=== PATIENT | male | born 1965 | race Caucasian/White ===

== ENCOUNTER 2018-12-09 18:02 | Observation (INO) | payer BC, MEDICAID ==
[2018-12-09] MEDS ORDERED: LORAZEPAM 2 MG/ML VIAL IV ONE (18:14)
[2018-12-09] MEDS ORDERED: ONDANSETRON HCL IV 4 MG/2 ML VIAL IVP ONE (18:14)
[2018-12-09] MEDS ORDERED: 0.9 % SODIUM CHLORIDE 1000ML 1,000 ML IV SCH (18:15)
--- NOTE | 2018-12-09 18:19 | Emergency Department Record ---
History of Present Illness - General Chief Complaint: Abdominal Pain Stated Complaint: SHAKES,ABDOMINAL PAIN,WITHDRAWALS Time Seen by Provider: 12/09/18 18:08 Source: Patient Mode of Arrival: Ambulatory Limitations: No limitations - History of Present Illness Initial Comments: 53 yo male presents to ED for evaluation or alcohol withdrawal symptoms, reports that he last drank approximately 24 hours ago. Patient reports that he has been drinking daily for several months, denies health problems other than pancreatitis and oral cancer that was removed through [facility] several months ago , now in remission. Patient denies HTN, denies DM. Patient complains of abdominal pain with nausea, denies vomiting or change in stools. MD Complaint: Abdominal pain Onset/Timin -: Days(s) Location: Diffuse Radiation: None Severity: Severe Severity scale (1-10): 10 Quality: Aching Consistency: Constant Improves With: Nothing Worsens With: Nothing Associated Symptoms: Denies other symptoms, Nausea - Related Data Home Medications Medication Instructions Recorded Confirmed Last Taken Amitriptyline HCl 50 mg PO DAILY 12/09/18 12/09/18 Unknown Omeprazole 40 mg PO DAILY 12/09/18 12/09/18 Unknown Allergies Allergy/AdvReac Type Severity Reaction Status Date / Time benzocaine AdvReac SKIN Verified 12/09/18 18:16 IRRITATION lidocaine AdvReac SKIN Verified 12/09/18 18:16 IRRITATION lidocaine HCl AdvReac SKIN Verified 12/09/18 18:16 [From Xylocaine] IRRITATION Travel Screening - Travel/Exposure Within Last 30 Days Have you traveled within the last 30 days?: No Review of Systems Constitutional: Denies: Chills, Fever, Malaise, Night sweats Eyes: Denies: Eye discharge, Eye pain ENT: Denies: Congestion, Ear pain, Epistaxis Respiratory: Denies: Cough, Dyspnea Cardiovascular: Denies: Chest pain, Dyspnea on exertion Endocrine: Denies: Fatigue, Heat or cold intolerance Gastrointestinal: Reports: Abdominal pain, Nausea. Denies: Vomiting Genitourinary: Denies: Incontinence, Retention Musculoskeletal: Denies: Arthralgia, Back pain, Gout, Joint swelling Skin: Denies: Bruising, Change in color Neurological: Reports: Tremors. Denies: Abnormal gait, Confusion, Headache Psychiatric: Denies: Anxiety Hematological/Lymphatic: Denies: Anemia, Blood Clots Past Medical History - SOCIAL HISTORY Smoking Status: Heavy tobacco smoker (>10/day) Alcohol Use Comment: no alcohol since 3-16 was heavy drinker before that - RESPIRATORY Hx Respiratory Disorders: No - CARDIOVASCULAR Hx Cardio Disorders: Yes Hx Cardiac Cath: Yes (2012) - NEURO Hx Neuro Disorders: No - GI Hx GI Disorders: Yes Hx Abdominal Pain: Yes Hx Reflux: Yes Hx Hepatitis/Jaundice: Yes (inpast) Hx Pancreatitis: Yes (chronic) Hx Wt Loss/Wt Gain: Yes (20 lbs) - Hx Genitourinary Disorders: No - ENDOCRINE Hx Endocrine Disorders: No - MUSCULOSKELETAL Hx Musculoskeletal Disorders: Yes Hx Back Injury: Yes (fx x's 2) - PSYCH Hx Psych Problems: No - HEMATOLOGY/ONCOLOGY Hx Hematology/Oncology Disorders: No Family Medical History Family Hx Comment (NOT TO BE USED IN PLACE OF ITEMS BELOW): adopted Physical Exam - General General Appearance: Alert, Oriented x3, Cooperative Limitations: No limitations - Head Head exam: Atraumatic, Normocephalic, Normal inspection Head exam detail: negative: Abrasion, Contusion, Gregory's sign, General tenderness, Hematoma, Laceration - Eye Eye exam: Normal appearance. negative: Conjunctival injection, Periorbital swelling, Periorbital tenderness, Scleral icterus - ENT Ear exam: negative: Auricular hematoma, Auricular trauma Nasal Exam: negative: Active bleeding, Discharge, Dried blood, Foreign body Mouth exam: negative: Drooling, Laceration, Muffled voice, Tongue elevation - Neck Neck exam: Normal inspection. negative: Meningismus, Tenderness - Respiratory Respiratory exam: Normal lung sounds bilaterally. negative: Respiratory distress, Rhonchi, Stridor, Wheezes - Cardiovascular Cardiovascular Exam: Regular rate, Normal rhythm, Normal heart sounds - GI/Abdominal GI/Abdominal exam: Soft. negative: Distended, Rebound, Rigid, Tenderness - Rectal Rectal exam: Deferred - exam: Deferred - Extremities Extremities exam: Normal inspection. negative: Pedal edema, Tenderness - Back Back exam: Denies: CVA tenderness (R), CVA tenderness (L) - Neurological Neurological exam: Alert, Normal gait, Oriented X3 - Psychiatric Psychiatric exam: Normal affect, Normal mood - Skin Skin exam: Normal color. negative: Abrasion Type of lesion: negative: abrasion Course Vital Signs 12/09/18 18:09 Temperature 97.8 F Pulse Rate 65 Respiratory 18 Rate Blood Pressure 174/103 Pulse Ox 97 - Reevaluation(s) Reevaluation #1: 12/09/18 18:55 Laboratory studies were reviewed and are grossly unremarkable for an acute process except for the following: AG 17 Lipase 74 Alk phos 196 ALT 45 Patient was updated on all results, will admit for alcohol withdrawal pathway at this time. Reevaluation #2: 12/09/18 19:02 Case was discussed with Leigh Calixto NP, will accept admission at this time, Medical Decision Making - Lab Data Result diagrams: 12/09/18 18:20 12/09/18 18:20 Disposition Disposition: Admit Clinical Impression: Alcohol withdrawal Qualifiers: Complication of substance-induced condition: uncomplicated Qualified Code(s): F10.230 - Alcohol dependence with withdrawal, uncomplicated Disposition: Still a Patient at [facility] Decision to Admit: Admit from ER Decision to Admit Date: 12/09/18 Decision to Admit Time: 19:03 Condition: (2) Stable Forms: Patient Portal Access Time of Disposition: 19:03 Quality - Quality Measures Quality Measures: N/A - Blood Pressure Screening Does Patient Have Any of the Following: No Blood Pressure Classification: Hypertensive Reading Systolic Measurement: 174 Diastolic Measurement: 103 Screening for High Blood Pressure: < First Hypertensive BP, F/U Documented > [ G8950] First Hypertensive Follow-up Interventions: Referral to alternative/primary care provider.
[2018-12-09 18:34] LABS: HEMATOCRIT 45.8 % (42.0-52.0); HEMOGLOBIN 16.1 gm/dl (14.0-18.0); MEAN CELL VOLUME 88.9 fl (81-97); MEAN CORPUSCULAR HEMOGLOBIN 31.3 pg (27-33); MEAN CORPUSCULAR HGB CONC 35.2 g/dl (32-36); MEAN PLATELET VOLUME 9.6 fl (7.4-10.4); PLATELET COUNT 261 K/uL (130-400); RED BLOOD COUNT 5.15 M/uL (4.40-5.70); RED CELL DISTRIBUTION WIDTH 14.5 % (11.5-14.5); WHITE BLOOD COUNT W/O DIFF 11.7 K/uL (4.2-12.2)
[2018-12-09 18:44] LABS: PLATELET ESTIMATE NORMAL (NORMAL)
[2018-12-09 18:45] LABS: BLOOD UREA NITROGEN 13 mg/dL (6-20); CREATININE 0.7 mg/dL (0.7-1.2); EST GLOMERULAR FILTRATION RATE > 60 mL/min
[2018-12-09 18:46] LABS: TOTAL PROTEIN 7.3 g/dL (6.6-8.7)
[2018-12-09 18:47] LABS: PROTHROMBIN TIME (PATIENT) 10.2 SECONDS (9.5-12.1)
[2018-12-09 18:48] LABS: GLUCOSE,RANDOM 112 mg/dL (74-109)
[2018-12-09 18:50] LABS: ALT/SGPT 45 U/L (<41)
[2018-12-09 18:51] LABS: ALB/GLOB RATIO 1.4 (1.1-1.8); ALBUMIN 4.3 g/dL (4.0-5.0); ALKALINE PHOSPHATASE 196 U/L (40-129); AST/SGOT 33 U/L (10.0-50.0)
[2018-12-09] MEDS ORDERED: KETOROLAC 30 MG/ML VIAL IVP ONE (19:03)
[2018-12-09] MEDS ORDERED: KETOROLAC 30 MG/ML VIAL IVP PRN (20:41)
[2018-12-09] MEDS: CHLORDIAZEPOXIDE 25 MG CAPSULE PO SCH (21:16)
[2018-12-09] MEDS: 0.9 % SODIUM CHLORIDE 1000ML 1,000 ML IV PRN (21:19)
[2018-12-09] MEDS ORDERED: ONDANSETRON HCL IV 4 MG/2 ML VIAL IVP PRN (22:21)
[2018-12-09] MEDS: LORAZEPAM 2 MG/ML VIAL IV PRN (22:35)
[2018-12-10] MEDS: 0.9 % SODIUM CHLORIDE 1000ML 1,000 ML IV PRN ×2 (05:59→16:10)
[2018-12-10] MEDS: PANTOPRAZOLE SODIUM 40 MG TABLET PO SCH (05:59)
[2018-12-10 06:35] LABS: BLOOD UREA NITROGEN 12 mg/dL (6-20); CREATININE 0.8 mg/dL (0.7-1.2); EST GLOMERULAR FILTRATION RATE > 60 mL/min; GLUCOSE,RANDOM 115 mg/dL (74-109)
[2018-12-10] MEDS: CHLORDIAZEPOXIDE 25 MG CAPSULE PO SCH ×3 (09:44→21:12)
[2018-12-10] MEDS ORDERED: AMITRIPTYLINE 25 MG TABLET PO SCH ×2 (10:00→22:00)
[2018-12-10] MEDS: NICOTINE 21 MG/24 HOUR PATCH TD SCH (10:04)
[2018-12-10] MEDS: LORAZEPAM 2 MG/ML VIAL IV PRN ×2 (10:12→22:55)
--- NOTE | 2018-12-10 10:52 | History & Physical ---
History of Present Illness - Date of Service Date of Service for History & Physical: 12/10/18 - History of Present Illness Admitting Diagnosis: Alcohol withdrawal syndrome History of Present Illness: Mr. Saleem is a 53 year-old male who presented to the ED on for evaluation of alcohol withdrawal symptoms. He reported his last drink was 24 hours prior. Patient reported that he had been drinking daily for several months, denies health problems other than pancreatitis and oral cancer that was removed through [facility] several months ago, now in remission. Patient denies HTN, denies DM. Patient complains of abdominal pain with nausea, denies vomiting or change in stools. He is an every-day smoker. In the ED, his BP was 174/103, HR 65, RR 18, 97% on room air and T 97.8F. Labs demonstrated AG 17, lipase 74, alk phos 196, and ALT 45. Pt. was admitted for observation for ETOH withdrawal. EKG demonstrated NSR, normal intervals, no ST changes. 12/10/18: Pt. is presently resting in bed. He denies pain and nausea at this time. He states that he is not interested in rehab at this time, but that he is interested in quitting drinking. VS and labs this am are stable. CIWA scale at 0946 was 5. Will continue librium 25mg tid and titrate according to CIWA scale. Ativan 2mg IV q4h prn restlessness. Pt's states that pt. has withdrawn from alcohol 3-4 times in the past- he did have seizures from withdrawal in the past. Planning for pt. to stay for at least 24 hours (last drink was Friday 12/08). PCP: Dr. Russell Travel Screening - Travel/Exposure Within Last 30 Days Have you traveled within the last 30 days?: No - Travel/Exposure Within Last Year Have you traveled outside the [place] in the last year?: No - Additonal Travel Details Have you been exposed to anyone with a communicable illness?: No Review of Systems Constitutional: Denies: Chills, Fever, Malaise, Night sweats Eyes: Denies: Eye discharge, Eye pain ENT: Denies: Congestion, Ear pain, Epistaxis Respiratory: Denies: Cough, Dyspnea Cardiovascular: Denies: Chest pain, Dyspnea on exertion Endocrine: Denies: Fatigue, Heat or cold intolerance Gastrointestinal: Reports: Abdominal pain, Nausea. Denies: Vomiting Genitourinary: Denies: Incontinence, Retention Musculoskeletal: Denies: Arthralgia, Back pain, Gout, Joint swelling Skin: Denies: Bruising, Change in color Neurological: Reports: Tremors. Denies: Abnormal gait, Confusion, Headache Psychiatric: Denies: Anxiety Hematological/Lymphatic: Denies: Anemia, Blood Clots Past Medical History - SOCIAL HISTORY Smoking Status: Heavy tobacco smoker (>10/day) Alcohol Use: Heavy Drug Use: None - RESPIRATORY Hx Respiratory Disorders: No Hx COPD: Yes - CARDIOVASCULAR Hx Cardio Disorders: Yes Hx Cardiac Cath: Yes (2012) - NEURO Hx Neuro Disorders: No - GI Hx GI Disorders: Yes Hx Abdominal Pain: Yes Hx Reflux: Yes Hx Hepatitis/Jaundice: Yes (inpast) Hx Pancreatitis: Yes (chronic) Hx Wt Loss/Wt Gain: Yes (20 lbs) - Hx Genitourinary Disorders: No - ENDOCRINE Hx Endocrine Disorders: No - MUSCULOSKELETAL Hx Musculoskeletal Disorders: Yes Hx Back Injury: Yes (fx x's 2) - PSYCH Hx Psych Problems: No - HEMATOLOGY/ONCOLOGY Hx Hematology/Oncology Disorders: No Hx Cancer: Yes (mouth) Family Medical History Any Significant Family History?: No Family Hx Comment (NOT TO BE USED IN PLACE OF ITEMS BELOW): adopted H&P Meds/Allergies - Allergies Allergies: Allergies Allergy/AdvReac Type Severity Reaction Status Date / Time benzocaine AdvReac SKIN Verified 12/09/18 18:16 IRRITATION lidocaine AdvReac SKIN Verified 12/09/18 18:16 IRRITATION lidocaine HCl AdvReac SKIN Verified 12/09/18 18:16 [From Xylocaine] IRRITATION - Home Medications Home Medications Medication Instructions Recorded Confirmed Last Taken Amitriptyline HCl 50 mg PO DAILY 12/09/18 12/09/18 Unknown Omeprazole 40 mg PO DAILY 12/09/18 12/09/18 Unknown - Active Medications Active Medications: Current Medications Amitriptyline HCl (Elavil) 50 mg PO DAILY [facility] Last Admin: 12/10/18 09:44 Dose: 50 mg Chlordiazepoxide HCl (Librium) 25 mg PO TID [facility] Last Admin: 12/10/18 09:44 Dose: 25 mg Sodium Chloride () 1,000 mls @ 100 mls/hr IV .Q10H PRN PRN Reason: LARGE VOLUME IV Last Admin: 12/10/18 05:59 Dose: 100 mls/hr Ketorolac Tromethamine (Toradol) 30 mg IVP Q8H PRN PRN Reason: PAIN - MILD TO MODERATE (1-7) Lorazepam (Ativan) 2 mg IV Q4H PRN PRN Reason: RESTLESSNESS Last Admin: 12/10/18 10:12 Dose: 2 mg Nicotine (Nicotine 21mg) 1 patch TD Q24H [facility] Last Admin: 12/10/18 10:04 Dose: 1 patch Ondansetron HCl (Zofran) 4 mg IVP Q8H PRN PRN Reason: NAUSEA Last Admin: 12/09/18 22:31 Dose: 4 mg Pantoprazole Sodium (Protonix) 40 mg PO DAILYAC [facility] Last Admin: 12/10/18 05:59 Dose: 40 mg Physical Exam - Vital Signs Vital Signs: Vital Signs - Last 24 Hrs Temp Pulse Pulse Pulse Resp BP BP 12/10/18 08:00 97.5 F L 65 95 H 16 154/89 12/10/18 04:00 98.7 F 79 20 146/94 12/10/18 00:00 98.5 F 80 18 150/87 12/09/18 21:00 16 12/09/18 20:25 97.9 F 63 20 161/86 12/09/18 20:09 77 20 142/100 12/09/18 19:02 58 L 20 161/103 12/09/18 18:09 97.8 F 65 18 174/103 Pulse Ox 12/10/18 08:00 95 12/10/18 04:00 92 L 12/10/18 00:00 95 12/09/18 21:00 12/09/18 20:25 96 12/09/18 20:09 94 L 12/09/18 19:02 95 12/09/18 18:09 97 - General General Appearance: Alert, Oriented x3, Cooperative Limitations: No limitations - Head Head exam: Atraumatic, Normocephalic, Normal inspection Head exam detail: negative: Abrasion, Contusion, Gregory's sign, General tenderness, Hematoma, Laceration - Eye Eye exam: Normal appearance. negative: Conjunctival injection, Periorbital swelling, Periorbital tenderness, Scleral icterus - ENT Ear exam: negative: Auricular hematoma, Auricular trauma Nasal Exam: negative: Active bleeding, Discharge, Dried blood, Foreign body Mouth exam: negative: Drooling, Laceration, Muffled voice, Tongue elevation - Neck Neck exam: Normal inspection. negative: Meningismus, Tenderness - Respiratory Respiratory exam: Normal lung sounds bilaterally. negative: Respiratory distress, Rhonchi, Stridor, Wheezes - Cardiovascular Cardiovascular Exam: Regular rate, Normal rhythm, Normal heart sounds - GI/Abdominal GI/Abdominal exam: Soft. negative: Distended, Rebound, Rigid, Tenderness - Rectal Rectal exam: Deferred - exam: Deferred - Extremities Extremities exam: Normal inspection. negative: Pedal edema, Tenderness - Back Back exam: Denies: CVA tenderness (R), CVA tenderness (L) - Neurological Neurological exam: Alert, Normal gait, Oriented X3 - Psychiatric Psychiatric exam: Normal affect, Normal mood - Skin Skin exam: Normal color. negative: Abrasion Type of lesion: negative: abrasion Results - Labs Result Diagrams: 12/09/18 18:20 12/10/18 06:12 Labs Last 24 Hours: Laboratory Results - last 24 hr 12/09/18 12/09/18 12/09/18 18:20 18:20 18:20 WBC 11.7 RBC 5.15 Hgb 16.1 Hct 45.8 MCV 88.9 MCH 31.3 MCHC 35.2 RDW 14.5 Plt Count 261 MPV 9.6 Neutrophils % 81.0 H Band Neutrophils % 2.0 Eosinophils % Not Reportable Basophils % Not Reportable Lymphocytes 9.0 L Monocytes 8.0 Platelet Estimate Normal RBC Morphology Normal PT 10.2 INR 1.0 Sodium 134 L Potassium 3.8 Chloride 91 L Carbon Dioxide 26.0 Anion Gap 17.0 H BUN 13 Creatinine 0.7 Estimated GFR > 60 Random Glucose 112 H Calcium 9.9 Magnesium Total Bilirubin 1.00 AST 33 ALT 45 H Alkaline Phosphatase 196 H Total Protein 7.3 Albumin 4.3 Globulin 3.0 Albumin/Globulin Ratio 1.4 Lipase 12/09/18 12/09/18 12/10/18 18:20 18:20 06:12 WBC RBC Hgb Hct MCV MCH MCHC RDW Plt Count MPV Neutrophils % Band Neutrophils % Eosinophils % Basophils % Lymphocytes Monocytes Platelet Estimate RBC Morphology PT INR Sodium 136 Potassium 3.9 Chloride 99 Carbon Dioxide 25.0 Anion Gap 12.0 BUN 12 Creatinine 0.8 Estimated GFR > 60 Random Glucose 115 H Calcium 9.0 Magnesium 1.7 Total Bilirubin AST ALT Alkaline Phosphatase Total Protein Albumin Globulin Albumin/Globulin Ratio Lipase 74 H VTE H&P Assessment - Risk for VTE Risk for VTE: Yes Risk Level: Low Risk Assessment Date: 12/10/18 Risk Assessment Time: 10:53 VTE Orders Placed or Will Be Placed: Yes Plan - Detailed Diagnosis and Plan (1) Alcohol withdrawal Current Visit: Yes Status: Acute Qualifiers: Complication of substance-induced condition: uncomplicated Qualified Code(s ): F10.230 - Alcohol dependence with withdrawal, uncomplicated Base Code: F10.239 - ALCOHOL DEPENDENCE WITH WITHDRAWAL, UNSPECIFIED Comment: 12/10/18: -Hx ETOH abuse (1 pint per day of liquor). Last drink was 12/08/18. -CIWA scale q4h, libruim 25mg tid, seizure precautions (2) At risk for deep venous thrombosis Current Visit: Yes Status: Acute Base Code: Z91.89 - OTH PERSONAL RISK FACTORS, NOT ELSEWHERE CLASSIFIED Comment: 12/10/18: -40mg lovenox SC ordered for prophylaxis (3) Full code status Current Visit: Yes Status: Acute Base Code: Z78.9 - OTHER SPECIFIED HEALTH STATUS Comment: 12/10/18: -Pt. is a full code
[2018-12-11] MEDS: PANTOPRAZOLE SODIUM 40 MG TABLET PO SCH (06:02)
[2018-12-11 07:19] LABS: ALB/GLOB RATIO 1.4 (1.1-1.8); ALBUMIN 3.4 g/dL (4.0-5.0); ALKALINE PHOSPHATASE 119 U/L (40-129); ALT/SGPT 26 U/L (<41); AST/SGOT 17 U/L (10.0-50.0); BLOOD UREA NITROGEN 10 mg/dL (6-20); CREATININE 0.8 mg/dL (0.7-1.2); EST GLOMERULAR FILTRATION RATE > 60 mL/min; GLUCOSE,RANDOM 142 mg/dL (74-109); LIPASE 112 U/L (13-60); TOTAL PROTEIN 5.8 g/dL (6.6-8.7)
[2018-12-11] MEDS: NICOTINE 21 MG/24 HOUR PATCH TD SCH ×2 (09:14→10:25)
[2018-12-11] MEDS: CHLORDIAZEPOXIDE 25 MG CAPSULE PO SCH ×2 (09:14→15:41)
--- NOTE | 2018-12-11 11:08 | Discharge Summary ---
Providers Discharge Summary Date: 12/11/18 Date of admission: 12/09/18 20:14 Expected Date of Discharge: 12/11/18 Attending physician: LILIA PELAEZ Primary care physician: DISHA PARTIDA D.O. Physical Exam - Vital Signs Vital Signs: Vital Signs - Last 24 Hrs Temp Pulse Resp BP Pulse Ox 12/11/18 08:45 20 12/11/18 08:00 98.5 F 85 20 135/76 94 L 12/11/18 04:00 97.9 F 69 16 120/76 96 12/10/18 21:00 16 12/10/18 20:00 98.7 F 84 16 132/95 94 L 12/10/18 16:00 98.4 F 86 16 156/92 96 12/10/18 11:58 98.5 F 83 18 131/78 94 L - General General Appearance: Alert, Oriented x3, Cooperative Limitations: No limitations - Head Head exam: Atraumatic, Normocephalic, Normal inspection Head exam detail: negative: Abrasion, Contusion, Gregory's sign, General tenderness, Hematoma, Laceration - Eye Eye exam: Normal appearance. negative: Conjunctival injection, Periorbital swelling, Periorbital tenderness, Scleral icterus - ENT Ear exam: negative: Auricular hematoma, Auricular trauma Nasal Exam: negative: Active bleeding, Discharge, Dried blood, Foreign body Mouth exam: negative: Drooling, Laceration, Muffled voice, Tongue elevation - Neck Neck exam: Normal inspection. negative: Meningismus, Tenderness - Respiratory Respiratory exam: Normal lung sounds bilaterally. negative: Respiratory distress, Rhonchi, Stridor, Wheezes - Cardiovascular Cardiovascular Exam: Regular rate, Normal rhythm, Normal heart sounds - GI/Abdominal GI/Abdominal exam: Soft. negative: Distended, Rebound, Rigid, Tenderness - Rectal Rectal exam: Deferred - exam: Deferred - Extremities Extremities exam: Normal inspection. negative: Pedal edema, Tenderness - Back Back exam: Denies: CVA tenderness (R), CVA tenderness (L) - Neurological Neurological exam: Alert, Normal gait, Oriented X3 - Psychiatric Psychiatric exam: Normal affect, Normal mood - Skin Skin exam: Normal color. negative: Abrasion Type of lesion: negative: abrasion Hospitalization - Hospitalization Admission Diagnosis: Alcohol withdrawal syndrome - Problem List/Discharge Diagnosis (1) Alcohol withdrawal Current Visit: Yes Status: Acute Discharge Diagnosis: Complication of substance-induced condition: uncomplicated Qualified Code(s ): F10.230 - Alcohol dependence with withdrawal, uncomplicated Base Code: F10.239 - ALCOHOL DEPENDENCE WITH WITHDRAWAL, UNSPECIFIED Comment: 12/11/18: -Hx ETOH abuse (1 pint per day of liquor). Last drink was 12/08/18. -CIWA scale q4h, libruim 25mg tid, seizure precautions (2) At risk for deep venous thrombosis Current Visit: Yes Status: Acute Base Code: Z91.89 - OTH PERSONAL RISK FACTORS, NOT ELSEWHERE CLASSIFIED Comment: 12/11/18: -40mg lovenox SC ordered for prophylaxis (3) Full code status Current Visit: Yes Status: Acute Base Code: Z78.9 - OTHER SPECIFIED HEALTH STATUS Comment: 12/11/18: -Pt. is a full code - Hospitalization Course Disposition: Home, Self-Care Hospital Course: Mr. Saleem is a 53 year-old male who presented to the ED on for evaluation of alcohol withdrawal symptoms. He reported his last drink was 24 hours prior. Patient reported that he had been drinking daily for several months, denies health problems other than pancreatitis and oral cancer that was removed through [facility] several months ago, now in remission. Patient denies HTN, denies DM. Patient complains of abdominal pain with nausea, denies vomiting or change in stools. He is an every-day smoker. In the ED, his BP was 174/103, HR 65, RR 18, 97% on room air and T 97.8F. Labs demonstrated AG 17, lipase 74, alk phos 196, and ALT 45. Pt. was admitted for observation for ETOH withdrawal. EKG demonstrated NSR, normal intervals, no ST changes. 12/10/18: Pt. is presently resting in bed. He denies pain and nausea at this time. He states that he is not interested in rehab at this time, but that he is interested in quitting drinking. VS and labs this am are stable. CIWA scale at 0946 was 5. Will continue librium 25mg tid and titrate according to CIWA scale. Ativan 2mg IV q4h prn restlessness. Pt's states that pt. has withdrawn from alcohol 3-4 times in the past- he did have seizures from withdrawal in the past. Planning for pt. to stay for at least 24 hours (last drink was Friday 12/08). 12/11/18: Pt. is presently resting in bed- no tremors at this time. CIWA has remained less than 8. Woody Mabry () spoke with pt this am regarding for ETOH wd, pt is more interested in marital counseling at this time- several other triggers contributing to ETOH abuse per pt. Will plan to d/c home today- pt to f/u with Dr. Partida within 5-7 days. PCP: Dr. Partida Procedures: Cardiology Procedures 12/09/18 21:07 EKG NOW Abnormal Labs: Abnormal Lab Results 12/09/18 12/09/18 12/09/18 Range/Units 18:20 18:20 18:20 Neutrophils % 81.0 H (47-80) % Lymphocytes 9.0 L (16-45) % Sodium 134 L (136-145) mmol/L Chloride 91 L (98-107) mmol/L Anion Gap 17.0 H (7-16) Random Glucose 112 H (74-109) mg/dL ALT 45 H (<41) U/L Alkaline Phosphatase 196 H (40-129) U/L Total Protein (6.6-8.7) g/dL Albumin (4.0-5.0) g/dL Lipase 74 H (13-60) U/L 12/10/18 12/11/18 Range/Units 06:12 06:41 Neutrophils % (47-80) % Lymphocytes (16-45) % Sodium (136-145) mmol/L Chloride (98-107) mmol/L Anion Gap (7-16) Random Glucose 115 H 142 H (74-109) mg/dL ALT (<41) U/L Alkaline Phosphatase (40-129) U/L Total Protein 5.8 L (6.6-8.7) g/dL Albumin 3.4 L (4.0-5.0) g/dL Lipase 112 H (13-60) U/L Condition at Discharge: (2) Stable Discharge Medications - Discharge Medications Prescriptions: Chlordiazepoxide HCl [Librium] 25 mg PO TID 5 Days #15 capsule Home Medications: Ambulatory Orders Amitriptyline HCl 50 mg PO QHS 12/09/18 [Last Taken Unknown] Omeprazole 40 mg PO DAILY 12/09/18 [Last Taken Unknown] Chlordiazepoxide HCl [Librium] 25 mg PO TID 5 Days #15 capsule 12/11/18 [Last Taken Unknown] Discharge Plan - Discharge Instructions Activity at Discharge: Increase Activity as Tolerated Diet at Discharge: Regular Diet Additional Instructions: Follow up with your PCP within 5-7 days Return to the ED if tremors/agitation worsen, for any seizure activity, or for any chest pain. Quality Measures - Quality Measures Quality Measures: Documentation of Current Medications in Medical Record, Screening for High Blood Pressure and F/U Documented - Current Medications Quality Measure: Measure #130: Documentation of Current Medications Documentation of Current Medications: <Current Medications Documented/Reviewed> [G8427] - Blood Pressure Screening Quality Measure: Screening for High Blood Pressure and Follow-Up Documented Does Patient Have Any of the Following: No Blood Pressure Classification: Hypertensive Reading Systolic Measurement: 174 Diastolic Measurement: 103 Screening for High Blood Pressure: < Normal BP, F/U Not Required > [G8783] - Elder Abuse Suspicion Index EASI Reference Information: Jak MIMS, Loreto C, Moe D, Omkar Anton.Development and validation of a tool to assist physicians identification of elder abuse: The Elder Abuse Suspicion Index (EASI ). Journal of Elder Abuse and Neglect, 2008; 20 (3): 276-300.
== END 2018-12-11 18:05 | disposition home or self-care (01) ==
LOC: ER 18:02 → MEDSURG 20:14
PROVIDERS: ADMIT Internal Medicine; ATTEND Internal Medicine
DX: F10.230 Alcohol dependence with withdrawal, uncomplicated (principal); R11.0 Nausea; J44.9 Chronic obstructive pulmonary disease, unspecified; K21.9 Gastro-esophageal reflux disease without esophagitis; K86.1 Other chronic pancreatitis; Z90.49 Acquired absence of other specified parts of digestive tract; F17.210 Nicotine dependence, cigarettes, uncomplicated; Z85.819 Personal history of malignant neoplasm of unspecified site of lip, oral cavity, and pharynx; Z98.61 Coronary angioplasty status
CPT/HCPCS: 80048; 80053; 83690; 83735; 85027; 85610; 93005; 96361; 96374; 96375; 99217; 99220; 99285; J1885; J2405; J7030

== ENCOUNTER 2019-10-20 21:44 | Emergency (ER) | payer BC ==
[2019-10-20] MEDS ORDERED: CLINDAMYCIN 150 MG CAP PO ONE (21:49)
--- NOTE | 2019-10-20 21:55 | Emergency Department Record ---
History of Present Illness - General Chief complaint: Extremity Problem Stated complaint: LT ELBOW/SWELLING PAIN Time Seen by Provider: 10/20/19 21:49 Source: Patient, Family Mode of Arrival: Ambulatory Limitations: No limitations - History of Present Illness Initial comments: 53 yo male presents with swelling of the left posterior elbow. He states he f ell about three weeks ago. He denies any significant pain. He did have a small abrasion over the elbow. The last few days the posterior elbow has become softly swollen. There is mild erythema. He has full movement of the elbow without pain. No limitation to the movement. His last tetanus shot was one year ago. No fevers. No streaking redness up the arm. MD Complaint: Extremity swelling, Joint swelling -: Days(s) Location: Left History of Same: No Radiation: Distal Quality: Other Consistency: Constant Improves with: Nothing Worsens with: Nothing Associated Symptoms: Denies other symptoms - Related Data Previous Rx's Medication Instructions Recorded Clindamycin HCl [Cleocin HCl] 300 mg PO QID #28 capsule 10/20/19 Allergies Allergy/AdvReac Type Severity Reaction Status Date / Time benzocaine AdvReac SKIN Verified 10/20/19 21:48 IRRITATION lidocaine AdvReac SKIN Verified 10/20/19 21:48 IRRITATION lidocaine HCl AdvReac SKIN Verified 10/20/19 21:48 [From Xylocaine] IRRITATION Travel/Exposure Screening - Travel/Exposure Within Last 30 Days Have you traveled within the last 30 days?: No - Travel/Exposure Within Last Year Have you traveled outside the [place] in the last year?: No - Additonal Travel/Exposure Details Have you been exposed to anyone with a communicable illness?: No - Travel Symptoms Symptom Screening: None Review of Systems Constitutional: Denies: Chills, Fever, Malaise, Weakness, Weight change Eyes: Denies: Eye discharge, Eye pain ENT: Denies: Congestion, Throat pain Respiratory: Denies: Cough Cardiovascular: Denies: Chest pain, Palpitations, Syncope Endocrine: Denies: Fatigue Gastrointestinal: Denies: Abdominal pain, Diarrhea, Nausea, Vomiting Genitourinary: Denies: Dysuria, Frequency, Hematuria Musculoskeletal: Reports: As per HPI, Joint swelling. Denies: Arthralgia, Back pain, Myalgia, Neck pain Skin: Reports: Change in color. Denies: Bruising Neurological: Denies: Confusion, Headache Psychiatric: Denies: Anxiety Hematological/Lymphatic: Denies: Easy bleeding, Easy bruising Past Medical History - SOCIAL HISTORY Smoking Status: Heavy tobacco smoker (>10/day) Drug Use: None - RESPIRATORY Hx Respiratory Disorders: No Hx COPD: Yes - CARDIOVASCULAR Hx Cardio Disorders: Yes Hx Cardiac Cath: Yes (2012) - NEURO Hx Neuro Disorders: No - GI Hx GI Disorders: Yes Hx Abdominal Pain: Yes Hx Reflux: Yes Hx Hepatitis/Jaundice: Yes (inpast) Hx Pancreatitis: Yes (chronic) Hx Wt Loss/Wt Gain: Yes (20 lbs) - Hx Genitourinary Disorders: No - ENDOCRINE Hx Endocrine Disorders: No - MUSCULOSKELETAL Hx Musculoskeletal Disorders: Yes Hx Back Injury: Yes (fx x's 2) - PSYCH Hx Psych Problems: No - HEMATOLOGY/ONCOLOGY Hx Hematology/Oncology Disorders: No Hx Cancer: Yes (mouth) Family Medical History Family Hx Comment (NOT TO BE USED IN PLACE OF ITEMS BELOW): adopted Physical Exam - General General Appearance: Alert, Oriented x3, Cooperative, No acute distress Limitations: No limitations - Head Head exam: Atraumatic, Normal inspection - Eye Eye exam: Normal appearance - ENT ENT exam: Normal exam, Mucous membranes moist Ear exam: Normal external inspection Nasal Exam: Normal inspection Mouth exam: Normal external inspection - Neck Neck exam: Normal inspection. negative: Lymphadenopathy - Respiratory Respiratory exam: Normal lung sounds bilaterally. negative: Respiratory distress - Cardiovascular Cardiovascular Exam: Regular rate, Normal rhythm, Normal heart sounds Peripheral Pulses: 2+: Radial (L) - Extremities Extremities exam: Full ROM, Joint swelling, Normal capillary refill. negative: Normal inspection, Tenderness Image of Full Body: 1 - mild soft swelling of the posterior left elbow, mild erythema, healing 1cm scab, no pain with full flexion or extendion, no pain with supination or prontion. Visible consistent with bursitis. - Neurological Neurological exam: Alert, Oriented X3 - Psychiatric Psychiatric exam: Normal affect, Normal mood - Skin Skin exam: Erythema Course - Reevaluation(s) Reevaluation #1: 10/20/19 22:21 The patient has findings consistent with an olecranon bursitis The XR was reviewed. No acute fracture noted or FB He does not have any signs of joint involvement on XR or on examination to suggest septic joint I discussed risks and benefits of fluid drainage followed by antibiotic, gentle compression with anselmo wrap Procedure Needle Aspiration of bursa Chloraprep used to clean the skin 18 gauge needle use to easily aspirate and decompress the bursa. The area nearly completely decompressed 15ml of thin serous, slightly blood tinged fluid obtained, no pus seen Gentle compression then applied We discussed home care, follow up with the PCP and reasons to return We discussed chance of re-accumulation of the fluid as well Disposition Disposition: Discharge Clinical Impression: Olecranon bursitis of left elbow Disposition: Home, Self-Care Condition: (1) Good Instructions: Elbow Bursitis (ED) Additional Instructions: Review this ER visit and the tests performed with your family doctor Call your doctor tomorrow for the next available follow up appointment Return to the ER for a recheck immediately if worse, any new concerns or questions Take the prescriptions provided as directed Prescriptions: Clindamycin HCl [Cleocin HCl] 300 mg PO QID #28 capsule Forms: Patient Portal Access Time of Disposition: 22:24 Quality - Quality Measures Quality Measures: N/A - Blood Pressure Screening Does Patient Have Any of the Following: No Blood Pressure Classification: Pre-Hypertensive BP Reading Systolic Measurement: 135 Diastolic Measurement: 84 Screening for High Blood Pressure: < Pre-Hypertensive BP, F/U Documented > [[id number]] Pre-Hypertensive Follow-up Interventions: Referral to alternative/primary care provider.
--- NOTE | 2019-10-20 22:31 | RADIOLOGY REPORT ---
EXAMINATION: Left Elbow Complete, Minimum Three Views EXAM DATE: 10/20/2019 10:21 PM TECHNIQUE: AP, lateral, axial, and oblique INDICATION: fall three week ago, now swelling COMPARISON: None ENCOUNTER: Initial FINDINGS: Soft tissue swelling is noted over the olecranon. On the axial view, there is a very slight amount of irregularity noted which may be secondary to calcific tendinitis but a tiny impaction fracture canno t be entirely excluded. There are no other sites suspicious for acute fracture or dislocation. IMPRESSION: 1. Olecranon soft tissue swelling with some irregularity noted at the tip of the olecranon which may be secondary to calcific tendinitis versus tiny impaction fracture. Dictated by: Kristi Montalvo MD on 10/20/2019 10:27 PM. .
== END 2019-10-20 22:30 | disposition home or self-care (01) ==
LOC: ER 21:44
DX: M70.22 Olecranon bursitis, left elbow (principal); J44.9 Chronic obstructive pulmonary disease, unspecified; F17.210 Nicotine dependence, cigarettes, uncomplicated
CPT/HCPCS: 20605; 99284